=== PATIENT | female | born 1955 ===

== ENCOUNTER 2018-04-19 11:56 | Day surgery (SDC) | payer BC ==
[~2018-04-19] VITALS: Ht 170.2 cm; Wt 88.9 kg
[~2018-04-19 11:56] MED LIST: AMLO5 PO; Azor 10-40 MG1 EACH; CYCL10 PO; DULO60 PO; ESCI5; LISI20 PO; LORA.5 PO; OMEP20ER PO; ZOLP10 PO
[2018-04-19] MEDS ORDERED: ASPI81CH (12:22)
== END 2018-04-19 14:35 | disposition home or self-care (01) ==
LOC: ORSCSDS 11:56
PROVIDERS: Surgery
PROC: 0DJD8ZZ Inspection of Lower Intestinal Tract, Via Natural or Artificial Opening Endoscopic (ICD-10-PCS; principal; 2018-04-19 13:00)
DX: Z12.11 Encounter for screening for malignant neoplasm of colon (principal); Z80.0 Family history of malignant neoplasm of digestive organs; K57.30 Diverticulosis of large intestine without perforation or abscess without bleeding; K64.8 Other hemorrhoids; K64.4 Residual hemorrhoidal skin tags; E78.5 Hyperlipidemia, unspecified; I10 Essential (primary) hypertension; E66.9 Obesity, unspecified; Z68.31 Body mass index [BMI] 31.0-31.9, adult; Z79.82 Long term (current) use of aspirin; Z79.899 Other long term (current) drug therapy
CPT/HCPCS: J7120

== ENCOUNTER → 2019-01-31 | Outpatient (CLI) | payer BC ==
[~2019-01-31] MED LIST changes: +ASPI81CH
== END | disposition home or self-care (01) ==
LOC: LAB SHORT 16:25 → LAB EV 16:25
DX: N39.0 Urinary tract infection, site not specified (principal)
CPT/HCPCS: 87086

== ENCOUNTER → 2022-03-28 | Outpatient (CLI) | payer OTHER ==
[2022-03-28 17:58] LABS: BASOPHILS ABSOLUTE AUTO 0.05 K/mm3 (0.00-0.23); BASOPHILS PERCENT AUTO 0 % (0-2); EOSINOPHILS PERCENT AUTO 1 % (0-6); Hemoglobin 14.4 g/dL (11.5-16.0); IMMATURE GRAN PERCENT AUTO 1 % (0-1); LYMPHOCYTES ABSOLUTE AUTO 2.76 K/mm3 (0.84-5.20); LYMPHOCYTES PERCENT AUTO 23 % (21-46); MONOCYTES ABSOLUTE AUTO 0.76 K/mm3 (0.16-1.47); MONOCYTES PERCENT AUTO 6 % (4-13); Mean Corpuscular HGB 29.6 pg (26.0-34.0); Mean Corpuscular HGB Conc 33.5 g/dL (31.5-36.5); Mean Corpuscular Volume 89 fL (80-100); Mean Platelet Volume 10.5 fL (9.1-12.4); NEUTROPHILS ABSOLUTE AUTO 8.05 K/mm3 (1.96-9.15); NEUTROPHILS PERCENT AUTO 68 % (41-73); Platelet Count 382 K/mm3 (150-400); RDW Coefficient Variation 14.2 % (11.7-14.2); RDW Standard Deviation 45.1 fL (35.1-46.3); Red Blood Cell Count 4.86 M/mm3 (3.80-5.20); White Blood Cell Count 11.82 K/mm3 (4.00-11.30)
[2022-03-28 18:05] LABS: Albumin, Blood 3.8 g/dL (3.4-5.0); Albumin/Globulin Ratio 1.4 (0.8-1.8); Bilirubin, Total 0.3 mg/dL (0.1-1.0); Bun/Creatinine Ratio 16.4 (12.0-20.0); Calcium, Blood 8.7 mg/dL (8.5-10.1); Creatinine, Blood 1.28 mg/dL (0.40-1.00); Globulin, Blood 2.7 g/dL (2.2-4.0); Potassium, Blood 3.8 mmol/L (3.5-5.5); Total Protein, Blood 6.5 g/dL (6.4-8.2)
== END | disposition home or self-care (01) ==
LOC: LAB SHORT 17:48
PROVIDERS: Physician Assistant
DX: R10.9 Unspecified abdominal pain (principal)
CPT/HCPCS: 80053; 83690; 85025

== ENCOUNTER → 2023-06-30 | Outpatient (CLI) | payer OTHER ==
[~2023-06-30] MED LIST changes: +HYDR1TAB94 PO
== END ==
LOC: LAB 10:20 → LAB SHORT 10:20
DX: N39.0 Urinary tract infection, site not specified (principal)
CPT/HCPCS: 87086

== ENCOUNTER → 2024-05-26 | Outpatient (CLI) | payer OTHER | LOC: LAB 16:19 → LAB SHORT 16:19 | DX: N39.0 Urinary tract infection, site not specified (principal) | CPT/HCPCS: 87086 ==

== ENCOUNTER → 2024-11-15 | Outpatient (CLI) | payer OTHER ==
[2024-11-15 16:32] LABS: BASOPHILS ABSOLUTE AUTO 0.05 K/mm3 (0.00-0.23); BASOPHILS PERCENT AUTO 1 % (0-2); EOSINOPHILS ABSOLUTE AUTO 0.11 K/mm3 (0.00-0.68); EOSINOPHILS PERCENT AUTO 2 % (0-6); Hematocrit 38.3 % (33.0-51.0); Hemoglobin 13.4 g/dL (11.5-16.0); IMMATURE GRAN ABSOLUTE AUTO 0.05 K/mm3 (0.00-0.10); IMMATURE GRAN PERCENT AUTO 1 % (0-1); LYMPHOCYTES ABSOLUTE AUTO 1.98 K/mm3 (0.84-5.20); LYMPHOCYTES PERCENT AUTO 29 % (21-46); MONOCYTES ABSOLUTE AUTO 0.72 K/mm3 (0.16-1.47); MONOCYTES PERCENT AUTO 11 % (4-13); Mean Corpuscular HGB 31.6 pg (26.0-34.0); Mean Corpuscular Volume 90 fL (80-100); NEUTROPHILS ABSOLUTE AUTO 3.88 K/mm3 (1.96-9.15); NEUTROPHILS PERCENT AUTO 57 % (41-73); RDW Standard Deviation 42.5 fL (35.1-46.3); Red Blood Cell Count 4.24 M/mm3 (3.80-5.20); White Blood Cell Count 6.79 K/mm3 (4.00-11.30)
[2024-11-15 16:33] LABS: Mean Platelet Volume 10.6 fL (9.1-12.4); Platelet Count 269 K/mm3 (150-400)
[2024-11-15 16:48] LABS: Albumin, Blood 4.4 g/dL (3.4-5.0); Albumin/Globulin Ratio 1.5 (0.8-1.8); Bilirubin, Total 0.5 mg/dL (0.1-1.0); Bun/Creatinine Ratio 15.3 (12.0-20.0); Calcium, Blood 9.7 mg/dL (8.5-10.1); Creatinine, Blood 1.5 mg/dL (0.40-1.00); Potassium, Blood 3.2 mmol/L (3.5-5.5); Thyroid Stimulating Hormone 0.626 uIU/mL (0.360-4.800); Total Protein, Blood 7.4 g/dL (6.4-8.2)
== END ==
LOC: LAB 16:15 → LAB SHORT 16:15
PROVIDERS: Physician Assistant Medical
DX: R82.81 Pyuria (principal); R53.1 Weakness
CPT/HCPCS: 80053; 84443; 85025; 87086

== ENCOUNTER → 2025-04-06 | Outpatient (CLI) | payer OTHER ==
[2025-04-06 18:00] LABS: BASOPHILS ABSOLUTE AUTO 0.03 K/mm3 (0.00-0.23); BASOPHILS PERCENT AUTO 0 % (0-2); EOSINOPHILS ABSOLUTE AUTO 0.13 K/mm3 (0.00-0.68); EOSINOPHILS PERCENT AUTO 2 % (0-6); Hematocrit 38.6 % (33.0-51.0); Hemoglobin 13.1 g/dL (11.5-16.0); IMMATURE GRAN ABSOLUTE AUTO 0.03 K/mm3 (0.00-0.10); IMMATURE GRAN PERCENT AUTO 0 % (0-1); LYMPHOCYTES ABSOLUTE AUTO 1.94 K/mm3 (0.84-5.20); LYMPHOCYTES PERCENT AUTO 28 % (21-46); MONOCYTES ABSOLUTE AUTO 0.62 K/mm3 (0.16-1.47); MONOCYTES PERCENT AUTO 9 % (4-13); Mean Corpuscular HGB Conc 33.9 g/dL (31.5-36.5); Mean Corpuscular Volume 92 fL (80-100); NEUTROPHILS ABSOLUTE AUTO 4.21 K/mm3 (1.96-9.15); NEUTROPHILS PERCENT AUTO 61 % (41-73); NRBC ABSOLUTE 0.00 K/mm3 (0.00-0.02); NRBC Auto 0.0 /100 WBC (0.0-0.2); Platelet Count 275 K/mm3 (150-400); RDW Coefficient Variation 13.1 % (11.7-14.2); RDW Standard Deviation 43.5 fL (35.1-46.3)
[2025-04-06 18:30] LABS: Alanine Aminotransfer (ALT/SGP 27.0 U/L (12-78); Albumin, Blood 3.9 g/dL (3.4-5.0); Albumin/Globulin Ratio 1.3 (0.8-1.8); Anion Gap 8.0 mmol/L (3-11); Aspartate Aminotrans (AST/SGOT 15.0 U/L (12-37); Bilirubin, Total 0.6 mg/dL (0.1-1.0); Blood Urea Nitrogen 17.0 mg/dL (8-24); CO2, Blood 28.0 mmol/L (21-32); Calcium, Blood 9.5 mg/dL (8.5-10.1); Chloride, Blood 106.0 mmol/L (98-108); Creatinine, Blood 1.03 mg/dL (0.40-1.00); Globulin, Blood 3.0 g/dL (2.2-4.0); Glucose, Blood 131.0 mg/dL (70-99); Potassium, Blood 3.7 mmol/L (3.5-5.5); Sodium, Blood 138.0 mmol/L (136-145); Total Protein, Blood 6.9 g/dL (6.4-8.2)
== END ==
LOC: LAB SHORT 17:55 → LAB 17:55
DX: R10.32 Left lower quadrant pain (principal)
CPT/HCPCS: 80053; 83690; 85025

== ENCOUNTER → 2025-04-13 | Outpatient (CLI) | payer OTHER ==
[2025-04-13 15:26] LABS: Bacterial Vaginosis PCR Negative (NEGATIVE); Candida glabrata-krusei, PCR NOT DETECTED (NOT DETECT)
[2025-04-13 15:38] LABS: Candida Group, PCR DETECTED (NOT DETECT)
== END ==
LOC: LAB 12:01 → LAB SHORT 12:01
PROVIDERS: Family Medicine
DX: N89.8 Other specified noninflammatory disorders of vagina (principal)
CPT/HCPCS: 81515

== ENCOUNTER → 2025-06-21 | Outpatient (CLI) | payer OTHER | LOC: LAB 14:44 → LAB SHORT 14:44 | DX: R35.0 Frequency of micturition (principal) | CPT/HCPCS: 87077; 87086; 87186 ==